=== PATIENT | female | born 1970 | race Caucasian/White ===

== ENCOUNTER 2018-09-08 12:45 | Emergency (ER) | payer OTHER ==
[~2018-09-08] VITALS: Wt 79.5 kg
[2018-09-08 13:43] VITALS: BP 122/69; PULSE 79; RESP 19
--- NOTE | 2018-09-08 15:03 | ERD ---
ER Documentation Chief Complaint Chief Complaint bib self ,cc: right hand lac while using knife HPI 48-year-old female presenting with laceration to right medial pinky at the PIP joint after using her knife at work earlier today. Patient is a military police officer. She is right-hand dominant. Up-to-date on her vaccinations. She denies any weakness and states she is able to move her digit without any difficulty. Does not have any numbness or tingling. Denies other medical problems. NKDA. Surgical history denies. Social history denies ROS All systems reviewed and are negative except as per history of present illness. Allergies Allergies: Coded Allergies: No Known Allergy (Unverified , 09/08/18) PMhx/Soc Medical and Surgical Hx: pt denies Medical Hx, pt denies Surgical Hx Hx Alcohol Use: No Hx Substance Use: No Hx Tobacco Use: No Smoking Status: Never smoker FmHx Family History: No diabetes, No coronary disease, No other Physical Exam Vitals Vital Signs Date Temp Pulse Resp B/P (MAP) Pulse Ox O2 O2 Flow FiO2 Time Delivery Rate 09/08/18 98.3 79 19 122/69 100 Room Air 13:43 (86) 09/08/18 98.3 89 19 126/65 100 13:18 (85) Physical Exam GENERAL: The patient is well-appearing, well-nourished, in no acute distress CHEST: Clear to auscultation bilaterally. There are no rales, wheezes or rhonchi. HEART: Regular rate and rhythm. No murmurs, clicks, rubs or gallops. EXTREMITIES: Equal pulses bilaterally. Grossly neurovascularly intact. NEUROLOGIC: Motor strength in all 4 extremities with 5 out of 5 strength. Sensation grossly intact. SKIN: 1 cm linear laceration noted to the PIP joint of the medial right fifth digit. No active bleeding. No tendon or ligament injury. Procedures/MDM ER course: Site cleaned with copious normal saline. Wound had stopped bleeding and edges were difficult to separate so I decided to apply Dermabond. I have low suspicion for tendon or ligament injury. I have low suspicion for neuro deficit. DM: 48-year-old female presenting with findings consistent with laceration. I do not feel the sutures are indicated and I felt that patient would benefit with Dermabond. A low suspicion for tendon or ligament injury. I have low suspicion for neuro deficit. Patient is discharged and recommended to clean with soap and water and allow Dermabond to fall off on its own. Patient is recommended to follow-up with primary doctor. All questions answered at discharge Departure Diagnosis: Primary Impression: Laceration Condition: Stable Patient Instructions: Laceration, Hand Referrals: [facility] YOU HAVE RECEIVED A MEDICAL SCREENING EXAM AND THE RESULTS INDICATE THAT YOU DO NOT HAVE A CONDITION THAT REQUIRES URGENT TREATMENT IN THE EMERGENCY DEPARTMENT. FURTHER EVALUATION AND TREATMENT OF YOUR CONDITION CAN WAIT UNTIL YOU ARE SEEN IN YOUR DOCTORS OFFICE WITHIN THE NEXT 1-2 DAYS. IT IS YOUR RESPONSIBILITY TO MAKE AN APPOINTMENT FOR FOLOW-UP CARE. IF YOU HAVE A PRIMARY DOCTOR --you should call your primary doctor and schedule an appointment IF YOU DO NOT HAVE A PRIMARY DOCTOR YOU CAN CALL OUR PHYSICIAN REFERRAL HOTLINE AT IF YOU CAN NOT AFFORD TO SEE A PHYSICIAN YOU CAN CHOSE FROM THE FOLLOWING [facility] [id number] [facility] [address] [facility] [facility] [address] [facility] [address] [facility] [address] [facility] [facility] [address] Additional Instructions: FOLLOW UP WITH YOUR PRIMARY CARE PHYSICIAN TOMORROW.Return to this facility if you are not improving as expected. CAROL PULIDO PA-C Sep 08, 2018 15:03
== END 2018-09-08 13:43 | disposition home or self-care (01) ==
LOC: FTE 12:45
DX: S61.216A Laceration without foreign body of right little finger without damage to nail, initial encounter (principal); W26.0XXA Contact with knife, initial encounter; Y92.89 Other specified places as the place of occurrence of the external cause